=== PATIENT | female | born 1980 | race Caucasian/White ===

== ENCOUNTER → 2016-04-29 | Outpatient (CLI) | payer MEDICAID | LOC: HPND 08:41 | PROVIDERS: ATTEND Obstetrics & Gynecology | DX: O44.22 Partial placenta previa NOS or without hemorrhage, second trimester (principal); O35.8XX0 Maternal care for other (suspected) fetal abnormality and damage, not applicable or unspecified; Z3A.25 25 weeks gestation of pregnancy | CPT/HCPCS: 76811 ==

== ENCOUNTER → 2016-06-03 | Outpatient (CLI) | payer MEDICAID | LOC: HPND 07:49 | PROVIDERS: ATTEND Obstetrics & Gynecology | DX: O40.2XX0 Polyhydramnios, second trimester, not applicable or unspecified (principal) | CPT/HCPCS: 76816 ==

== ENCOUNTER 2017-09-19 11:41 | Emergency (ER) | payer BC, MEDICAID ==
[~2017-09-19] VITALS: Ht 167.6 cm; Wt 61.9 kg
[2017-09-19 11:44] VITALS: BP 125/67; PULSE 66; RESP 16; TEMP 98.3; O2SAT 100
--- NOTE | 2017-09-19 12:04 | PD ---
HPI Chief Complaint: GI Complaint Time Seen by Provider: 11:48 Travel History International Travel<30 days: No Contact w/Intl Traveler<30days: [place] Traveled to: [place] BACK 3 WEEKS AGO Traveled to known affect area: No History of Present Illness HPI The patient was seen and examined in the presence of the nurse. This patient complains of abdominal pain. She has 2 days of this. Severity is moderate. No alleviating factors. Eating exacerbates the discomfort. This located in both left and right lower quadrants. No vomiting. No history of abdominal surgeries. No urinary or vaginal symptoms. She is having some diarrhea as well PFSH Past Medical History Medical History: Denies Significant Hx Diminished Hearing: No Tetanus Vaccination: Unknown Influenza Vaccination: No ?: Not LMP: 08/23/17 Past Surgical History Other Surgery: Yes (right ankle) Social History Alcohol Use: Yes (occ) Tobacco Use: No Substance Use: No Allergies-Medications (Allergen,Severity, Reaction): Coded Allergies: No Known Allergies (Unverified , 09/19/17) Review of Systems General / Constitutional: No: Fever Eyes: No: Visual changes HENT: No: Headaches Cardiovascular: No: Chest Pain or Discomfort Respiratory: No: Shortness of Breath Gastrointestinal: Positive: Diarrhea, Abdominal Pain Genitourinary: No: Dysuria Musculoskeletal: No: Pain Skin: No Rash Neurologic: No: Weakness Psychiatric: No: Depression Endocrine: No: Polydipsia Hematologic/Lymphatic: No: Easy Bruising Physical Exam Narrative GENERAL: Well-nourished, well-developed patient in no apparent distress. SKIN: Focused skin assessment reveals no rash and nodules. Skin is Warm and dry. HEAD: Atraumatic. Normocephalic. EYES: Pupils equal and round. No scleral icterus. No injection or drainage. ENT: No nasal bleeding or discharge. Mucous membranes pink and moist. NECK: Trachea midline. No JVD. CARDIOVASCULAR: Regular rate and rhythm. No murmur appreciated. RESPIRATORY: No accessory muscle use. Clear to auscultation. Breath sounds equal bilaterally. GASTROINTESTINAL: Abdomen soft, mild bilateral lower quadrant tenderness without rebound or guarding, nondistended. Hepatic and splenic margins not palpable. MUSCULOSKELETAL: No obvious deformities. No clubbing. No cyanosis. No edema. NEUROLOGICAL: Awake and alert. No obvious cranial nerve deficits. Motor grossly within normal limits. Normal speech. PSYCHIATRIC: Appropriate mood and affect; insight and judgment normal. Data Data Last Documented VS Vital Signs Date Time Temp Pulse Resp B/P (MAP) Pulse Ox O2 Delivery O2 Flow Rate FiO2 09/19/17 13:37 74 18 114/62 (79) 100 Room Air 09/19/17 11:44 98.3 Orders Orders Complete Blood Count With Diff (09/19/17 12:01) Comprehensive Metabolic Panel (09/19/17 12:01) Lipase (09/19/17 12:01) Prothrombin Time / Inr (Pt) (09/19/17 12:01) Act Partial Throm Time (Ptt) (09/19/17 12:01) Ct Abd/Pel W Iv Contrast(Rout) (09/19/17 12:01) Iv Access Insert/Monitor (09/19/17 12:01) NPO (09/19/17 12:01) Sodium Chloride 0.9% Flush (Ns Flush) (09/19/17 12:15) Ed Urine Pregnancytest Poc (09/19/17 12:01) Iohexol 350 Inj (Omnipaque 350 Inj) (09/19/17 12:43) Ed Discharge Order (09/19/17 14:49) Labs Laboratory Tests Test 09/19/17 12:18 09/19/17 13:35 White Blood Count 5.3 TH/MM3 Red Blood Count 4.94 MIL/MM3 Hemoglobin 13.5 GM/DL Hematocrit 40.8 % Mean Corpuscular Volume 82.6 FL Mean Corpuscular Hemoglobin 27.4 PG Mean Corpuscular Hemoglobin Concent 33.1 % Red Cell Distribution Width 13.4 % Platelet Count 247 TH/MM3 Mean Platelet Volume 9.5 FL Neutrophils (%) (Auto) 59.1 % Lymphocytes (%) (Auto) 31.0 % Monocytes (%) (Auto) 5.7 % Eosinophils (%) (Auto) 1.6 % Basophils (%) (Auto) 2.6 % Neutrophils # (Auto) 3.2 TH/MM3 Lymphocytes # (Auto) 1.6 TH/MM3 Monocytes # (Auto) 0.3 TH/MM3 Eosinophils # (Auto) 0.1 TH/MM3 Basophils # (Auto) 0.1 TH/MM3 CBC Comment DIFF FINAL Differential Comment Prothrombin Time 9.9 SEC Prothromb Time International Ratio 1.0 RATIO Activated Partial Thromboplast Time 24.1 SEC Blood Urea Nitrogen 7 MG/DL Creatinine 0.49 MG/DL Random Glucose 88 MG/DL Total Protein 7.0 GM/DL Albumin 3.4 GM/DL Calcium Level 8.5 MG/DL Alkaline Phosphatase 59 U/L Aspartate Amino Transf (AST/SGOT) 17 U/L Alanine Aminotransferase (ALT/SGPT) 38 U/L Total Bilirubin 0.2 MG/DL Sodium Level 140 MEQ/L Potassium Level 3.8 MEQ/L Chloride Level 106 MEQ/L Carbon Dioxide Level 24.2 MEQ/L Anion Gap 10 MEQ/L Estimat Glomerular Filtration Rate 145 ML/MIN Lipase 196 U/L MDM Medical Decision Making Medical Screen Exam Complete: Yes Emergency Medical Condition: Yes Medical Record Reviewed: Yes Differential Diagnosis Appendicitis, colitis, ileus Narrative Course I have reviewed the patient's electronic medical record. Workup needed to rule out appendicitis IV placed and labs sent Urine is negative CT of abdomen and pelvis is negative for any emergent problem. Incidental finding of a trace of free fluid CBC and metabolic studies and LFTs are normal Patient stable for outpatient family physician follow-up. Expect her symptoms to gradually resolve. She may have a gastroenteritis type situation Diagnosis Primary Impression: Abdominal pain Qualified Codes: R10.30 - Lower abdominal pain, unspecified Additional Impression: Diarrhea Qualified Codes: R19.7 - Diarrhea, unspecified Additional Instructions: The patient was advised to follow up with their physician and return if they worsen. Med/Other Pt SpecificInfo: Other Disposition: 01 DISCHARGE HOME Condition: Stable Giorgio England MD Sep 19, 2017 12:04
[2017-09-19] MEDS ORDERED: SODIUM CHLORIDE 0.9% FLUSH 10 ML FLUSH IV FLUSH PRN (12:15)
[2017-09-19 12:39] LABS: AUTOMATED NEUTROPHIL # 3.2 TH/MM3 (1.8-7.7); BASOPHIL # 0.1 TH/MM3 (0-0.2); BASOPHIL % 2.6 % (0.0-2.0); EOSINOPHIL # 0.1 TH/MM3 (0-0.4); EOSINOPHIL % 1.6 % (0.0-4.0); HEMATOCRIT 40.8 % (35.0-46.0); HEMOGLOBIN 13.5 GM/DL (11.6-15.3); LYMPHOCYTE # 1.6 TH/MM3 (1.0-4.8); MEAN CELL VOLUME 82.6 FL (80.0-100.0); MEAN CORPUSCULAR HEMOGLOBIN 27.4 PG (27.0-34.0); MEAN CORPUSCULAR HGB CONC 33.1 % (32.0-36.0); MEAN PLATELET VOLUME 9.5 FL (7.0-11.0); MONO % 5.7 % (0.0-8.0); MONOCYTE # 0.3 TH/MM3 (0-0.9); NEUT % 59.1 % (16.0-70.0); PLATELET COUNT 247 TH/MM3 (150-450); RED BLOOD COUNT 4.94 MIL/MM3 (4.00-5.30); RED CELL DISTRIBUTION WIDTH 13.4 % (11.6-17.2); WHITE BLOOD COUNT 5.3 TH/MM3 (4.0-11.0)
[2017-09-19] MEDS ORDERED: IOHEXOL 350 MG/ML 10 ML VIAL (for RAD DIAG) IVCONTRAST ONE (12:43)
--- NOTE | 2017-09-19 13:04 | RADRPT ---
EXAM DATE: 09/19/2017 12:44 PM EDT AGE/SEX: 36 years / Female INDICATIONS: Lower abdominal pain for 2 days. CLINICAL DATA: This is the patient's initial encounter. Patient reports that signs and symptoms have been present for 2 days and indicates a pain score of 4/10. MEDICAL/SURGICAL HISTORY: None. None. ORAL CONTRAST: No oral contrast ingested. RADIATION DOSE: 6.16 CTDI (mGy) COMPARISON: No prior exams available for comparison. TECHNIQUE: Multiple contiguous axial images were obtained through the abdomen and pelvis following b olus infusion of 89 ml Omnipaque 350 (iohexol) nonionic water-soluble contrast as a single exam dos e. No oral contrast ingested. Using automated exposure control and adjustment of the mA and/or kV ac cording to patient size, the radiation dose was kept as low as reasonably achievable to obtain optima l diagnostic quality images. FINDINGS: Lung bases are clear. No acute findings in the liver, spleen, adrenals, kidneys or pancreas. No free air. Trace free fluid in the pelvis. Mild constipation. No acute bony abnormalities. No bowel obstruc tion CONCLUSION: 1. Small amount of free fluid in the pelvis. Mild constipation. Otherwise no acute findings. Electronically signed by: Yemi Peter MD 09/19/2017 1:02 PM EDT
[2017-09-19 13:37] VITALS: BP 114/62; PULSE 74; RESP 18; O2SAT 100
[2017-09-19 14:12] LABS: CHLORIDE 106 MEQ/L (98-107); SODIUM (NA) 140 MEQ/L (136-145)
[2017-09-19 14:18] LABS: ALBUMIN 3.4 GM/DL (3.4-5.0); BICARBONATE 24.2 MEQ/L (21.0-32.0); BLOOD UREA NITROGEN 7 MG/DL (7-18); CALCIUM 8.5 MG/DL (8.5-10.1); GLUCOSE,RANDOM 88 MG/DL (74-106)
[2017-09-19 14:21] LABS: ALT (GPT) 38 U/L (10-53); AST (GOT) 17 U/L (15-37); CREATININE 0.49 MG/DL (0.50-1.00); GLOMERULAR FILTRATION RATE 145 ML/MIN (>89)
[2017-09-19 14:23] LABS: TOTAL BILIRUBIN ADULT 0.2 MG/DL (0.2-1.0)
[2017-09-19 14:24] LABS: ALKALINE PHOSPHATASE 59 U/L (45-117)
[2017-09-19 14:36] LABS: PROTHROMBIN TIME - PATIENT 9.9 SEC (9.8-11.6)
== END 2017-09-19 15:01 | disposition home or self-care (01) ==
LOC: PHED 11:41
DX: R10.31 Right lower quadrant pain (principal); R10.32 Left lower quadrant pain; R19.7 Diarrhea, unspecified; K59.00 Constipation, unspecified
CPT/HCPCS: 74177; 80053; 83690; 84703; 85025; 85610; 85730; 99284; Q9967